=== PATIENT | female | born 1990 | race Caucasian/White ===

== ENCOUNTER 2016-10-10 16:08 | Emergency (ER) | payer OTHER ==
[~2016-10-10] VITALS: Ht 167.6 cm; Wt 124.0 kg
[~2016-10-10 16:08] MED LIST: CLIN150 PO; PERC5TAB12 PO
[2016-10-10 16:10] VITALS: BP 130/77; PULSE 90; RESP 20; TEMP 97.6; O2SAT 96
--- NOTE | 2016-10-10 18:49 | PD ---
HPI Chief Complaint: Back/ Neck Pain or Injury Time Seen by Provider: 18:49 Travel History International Travel<30 days: No Contact w/Intl Traveler<30days: No Traveled to known affect area: No History of Present Illness HPI 26 year-old female history of renal calculi presents to the emergency for evaluation of low back pain. Patient states she it is on the low left side. It does not radiate anywhere. She has had no urinary symptoms. States she believes it is from lifting a box at work. Denies any saddle paresthesia, loss of bowel or bladder, lower extremity weakness. Patient has no other symptoms to report at this time. PFSH Past Medical History Arthritis: No Asthma: No Autoimmune Disease: No Heart Rhythm Problems: No Cancer: No Cardiovascular Problems: No High Cholesterol: No Chemotherapy: No Chest Pain: No Congestive Heart Failure: No COPD: No Cerebrovascular Accident: No Diabetes: Yes Endocrine: No GERD: No Genitourinary: Yes Hiatal Hernia: No Immune Disorder: No Kidney Stones: Yes Musculoskeletal: No Neurologic: No Psychiatric: No Reproductive: No Respiratory: No Migraines: No Radiation Therapy: No Renal Failure: No Seizures: No Sickle Cell Disease: No Sleep Apnea: No Thyroid Disease: No Ulcer: No Past Surgical History Abdominal Surgery: No AICD: No Arteriovenous Shunt: No Cardiac Surgery: No Ear Surgery: No Endocrine Surgery: No Eye Surgery: No Genitourinary Surgery: Yes (CYSTOSCOPY (1999)) Gynecologic Surgery: No Insulin Pump: No Joint Replacement: No Oral Surgery: No Pacemaker: No Thoracic Surgery: No Other Surgery: Yes Social History Alcohol Use: No Tobacco Use: Yes Substance Use: No Allergies-Medications (Allergen,Severity, Reaction): Coded Allergies: Aspirin (Verified Allergy, Severe, Swelling, 10/10/16) Reported Meds & Prescriptions Reported Meds & Active Scripts Active Percocet 5-325 mg (Oxycodone/Acetaminophen) 1 Tab 1 Tab PO Q4H PRN Cleocin (Clindamycin HCl) 150 Mg Cap 2 Tab PO QID Review of Systems Except as stated in HPI: all other systems reviewed are Neg Physical Exam Narrative GENERAL: Obese female patient, ambulatory with a nonantalgic gait, no acute distress SKIN: Warm and dry. HEAD: Normocephalic. Atraumatic EYES: No scleral icterus. No injection or drainage. NECK: Supple, trachea midline. No JVD or lymphadenopathy. CARDIOVASCULAR: Regular rate and rhythm without murmurs, gallops, or rubs. RESPIRATORY: Breath sounds equal bilaterally. No accessory muscle use. GASTROINTESTINAL: Abdomen soft, non-tender, nondistended. MUSCULOSKELETAL: No cyanosis, or edema. Tenderness to palpation in the left sided lumbar paraspinous musculature. The spinal tenderness to palpation. 5+ strength equal bilateral lower extremities. Sensation intact distal extremities. BACK: No midline tenderness without obvious deformity. No CVA tenderness. Data Data Last Documented VS Vital Signs Date Time Temp Pulse Resp B/P Pulse Ox O2 Delivery O2 Flow Rate FiO2 10/10/16 16:10 97.6 90 20 130/77 96 Room Air Orders Urinalysis - C+S If Indicated (10/10/16 18:46) Ketorolac Inj (Toradol Inj) (10/10/16 19:00) Orphenadrine Inj (Norflex Inj) (10/10/16 19:00) MDM Medical Decision Making Medical Screen Exam Complete: Yes Emergency Medical Condition: Yes Medical Record Reviewed: Yes Differential Diagnosis Cystitis versus pyelonephritis versus muscle strain versus sciatica Narrative Course 26 year-old female presents to the emergency department for evaluation of low back pain. Patient is provided pain control. Urinalysis is sent. I have given report to Bran Rosa PA-C. Disposition will pend his judgment. Condition: Stable Mariaa Villaseñor Oct 10, 2016 18:49
[2016-10-10] MEDS ORDERED: ORPHENADRINE INJ 60 MG/2 ML AMP IM ONE (19:00)
[2016-10-10] MEDS ORDERED: KETOROLAC TROMETHAMINE 60 MG/2 ML (IM) VIAL IM ONE (19:00)
[2016-10-10 19:40] LABS: BACTERIA, URINE OCC /hpf; BLOOD, URINE SMALL (NEG); COMMENT (UR) CULTURE INDICATED; CULTURE IF INDICATED CULTURE INDICATED; GLUCOSE,URINE NEG (NEG); KETONE, URINE NEG (NEG); NITRITE,URINE POS (NEG); PH, URINE 5.5 (5.0-8.5); SQUAMOUS EPITHELIAL CELL URINE 3 /hpf (0-5); URINE COLOR YELLOW (YELLW/STRAW)
[2016-10-10] MEDS ORDERED: MACR100C2 PO (19:50)
[2016-10-10] MEDS ORDERED: ROBA750T PO (19:50)
--- NOTE | 2016-10-10 19:54 | PD ---
Data Data Last Documented VS Vital Signs Date Time Temp Pulse Resp B/P Pulse Ox O2 Delivery O2 Flow Rate FiO2 10/10/16 16:10 97.6 90 20 130/77 96 Room Air Orders Urinalysis - C+S If Indicated (10/10/16 18:46) Ketorolac Inj (Toradol Inj) (10/10/16 19:00) Orphenadrine Inj (Norflex Inj) (10/10/16 19:00) Urine Culture (10/10/16 19:05) Nitrofurantoin Monohyd Macrocr (Macrobid (10/10/16 20:00) Labs Laboratory Tests Test 10/10/16 19:05 Urine Color YELLOW Urine Turbidity CLEAR Urine pH 5.5 Urine Specific [place] 1.020 Urine Protein 30 mg/dL Urine Glucose (UA) NEG mg/dL Urine Ketones NEG mg/dL Urine Occult Blood SMALL Urine Nitrite POS Urine Bilirubin NEG Urine Urobilinogen LESS THAN 2.0 MG/DL Urine Leukocyte Esterase SMALL Urine RBC 4 /hpf Urine WBC 7 /hpf Urine Squamous Epithelial 3 /hpf Cells Urine Bacteria OCC /hpf Microscopic Urinalysis Comment CULTURE INDICATED MDM Medical Record Reviewed: Yes Supervised Visit with NEW: No Interpretation(s) Laboratory Tests Test 10/10/16 19:05 Urine Color YELLOW Urine Turbidity CLEAR Urine pH 5.5 Urine Specific [place] 1.020 Urine Protein 30 mg/dL Urine Glucose (UA) NEG mg/dL Urine Ketones NEG mg/dL Urine Occult Blood SMALL Urine Nitrite POS Urine Bilirubin NEG Urine Urobilinogen LESS THAN 2.0 MG/DL Urine Leukocyte Esterase SMALL Urine RBC 4 /hpf Urine WBC 7 /hpf Urine Squamous Epithelial 3 /hpf Cells Urine Bacteria OCC /hpf Microscopic Urinalysis Comment CULTURE INDICATED Differential Diagnosis MDM: High Differential diagnoses: Fracture, sprain, strain, HNP, nerve or vascular injury , epidural abscess, pilonidal cyst Narrative Course Patient was given Toradol and Norflex earlier. Patient's urine is positive for UTI. She has positive bacteria and nitrates. She is given Macrobid by mouth here in the ER. This is back pain, UTI Diagnosis Primary Impression: Back pain Qualified Code: M54.5 - Acute low back pain, unspecified back pain laterality , with sciatica presence unspecified Additional Impression: UTI (urinary tract infection) Qualified Code: N30.00 - Acute cystitis without hematuria Patient Instructions: General Instructions Departure Forms: Tests/Procedures, Work Release Special Instructions: No work 3 days. Additional Instruction: Rest. Ice for the next 3 days followed by heat . Robaxin and Lortab. Macrobid. Follow-up with a primary care doctor in one week. Return to the ER for emergencies. Med/Other Pt SpecificInfo: Prescription(s) given Scripts Hydrocodone-Acetaminophen (Lortab)5-325 Mg Tab1 Tab PO Q8HR PRN (PAIN) #12 TAB Prov:Heladio Boateng MD 10/10/16 Methocarbamol (Robaxin)750 Mg Tab1,500 Mg PO TID 7 Days Prov:Heladio Boateng MD 10/10/16 Nitrofurantoin Monohydrate Macrocrystals (Macrobid)100 Mg [id number] Mg PO BID #20 CAP Prov:Heladio Boateng MD 10/10/16 Disposition: 01 DISCHARGE HOME Condition: Stable Edwin Beckford Oct 10, 2016 19:54
[2016-10-10] MEDS ORDERED: HYDR-3533 PO (19:58)
[2016-10-10] MEDS ORDERED: NITROFURANTOIN MONOHYD MACROCR 100 MG CAP PO ONE (20:00)
[2016-10-10] MEDS ORDERED: MEDR4PAK PO (23:25)
[2016-10-10] MEDS ORDERED: EPIN1INJ19 INJ (23:25)
[2016-10-10] MEDS ORDERED: BENA25TA3 PO (23:25)
[2016-10-10] MEDS ORDERED: FAMO20TA2 PO (23:25)
== END 2016-10-10 20:14 | disposition home or self-care (01) ==
LOC: NEPB 16:08
DX: M54.5 Low back pain (principal); N30.00 Acute cystitis without hematuria; B96.20 Unspecified Escherichia coli [E. coli] as the cause of diseases classified elsewhere
CPT/HCPCS: 81001; 87077; 87086; 87186; 96372; 99283; J1885; J2360

== ENCOUNTER 2016-10-10 21:31 | Emergency (ER) | payer OTHER ==
[~2016-10-10] VITALS: Ht 167.6 cm; Wt 122.0 kg
[~2016-10-10 21:31] MED LIST changes: +HYDR-3533 PO; +MACR100C2 PO; +ROBA750T PO
[2016-10-10 21:33] VITALS: BP 139/88; PULSE 86; RESP 18; TEMP 97.6; O2SAT 97
--- NOTE | 2016-10-10 22:19 | PD ---
HPI Chief Complaint: Allergic/Adverse Reaction Time Seen by Provider: 22:08 Travel History International Travel<30 days: No Contact w/Intl Traveler<30days: No Traveled to known affect area: No History of Present Illness HPI The patient is a 26 year old female who presents to the [facility] emergency department with a history of Hg red watery eyes that first began in the right eye and then also began to involve the left eye just prior to being discharged from the emergency department earlier today around 8 PM after an evaluation for back pain. The patient while in the emergency department being evaluated for possible kidney stone, versus muscle strain related to heavy lifting at work was given an IM injection of Toradol and Norflex. The patient was also diagnosed with urinary tract infection based on her urinalysis and given Macrobid. She was discharged home with a prescription for Lortab, Robaxin , and Macrobid, however she has not filled the prescriptions yet. She reports that when she arrived home she noticed that she was also experiencing some tightness in the upper aspect of her chest, a dry cough, and wheezing. The patient according to the record has a history of allergy to aspirin. She denies having any tongue swelling or throat swelling. She reports that she feels like her face is swelling, however this is difficult to discern on exam. She denies having any other rashes or generalized itching. She denies having any abdominal pain, cramping, or diarrhea. The patient denies any recent fevers , cough, congestion, neck pain, vomiting, diarrhea, urinary symptoms, or neurologic symptoms. PFSH Past Medical History Narrative Medical The patient's past medical history is significant for an aspirin allergy, history of diabetes mellitus, history of obesity, history of kidney stones. Arthritis: No Asthma: No Autoimmune Disease: No Heart Rhythm Problems: No Cancer: No Cardiovascular Problems: No High Cholesterol: Yes Chemotherapy: No Chest Pain: No Congestive Heart Failure: No COPD: No Cerebrovascular Accident: No Diabetes: Yes Patient Takes Glucophage: Yes Diminished Hearing: No Endocrine: No GERD: No Genitourinary: Yes Hiatal Hernia: No Immune Disorder: No Kidney Stones: Yes Musculoskeletal: No Neurologic: No Psychiatric: No Reproductive: No Respiratory: No Migraines: No Radiation Therapy: No Renal Failure: No Seizures: No Sickle Cell Disease: No Sleep Apnea: No Thyroid Disease: No Ulcer: No ?: Not Past Surgical History Narrative Surgical The patient's past surgical history is significant for a cystoscopy Abdominal Surgery: No AICD: No Arteriovenous Shunt: No Cardiac Surgery: No Ear Surgery: No Endocrine Surgery: No Eye Surgery: No Genitourinary Surgery: Yes (CYSTOSCOPY (1999)) Gynecologic Surgery: No Insulin Pump: No Joint Replacement: No Oral Surgery: No Pacemaker: No Thoracic Surgery: No Other Surgery: Yes Social History Alcohol Use: No Tobacco Use: No Substance Use: No Allergies-Medications (Allergen,Severity, Reaction): Coded Allergies: Aspirin (Verified Allergy, Severe, Swelling, 10/10/16) Reported Meds & Prescriptions Reported Meds & Active Scripts Active Famotidine 20 Mg Tab 20 Mg PO BID Benadryl Allergy (Diphenhydramine HCl) 25 Mg Tab 25 Mg PO Q6H 3 Days Medrol Dosepak (Methylprednisolone) 4 Mg Dspk 4 Mg PO DIRECTED Per Pharmacist direction Epinephrine Inj Pack (Epinephrine) 0.15 Mg/0.15 Ml Pfpen 0.15 Mg INJ ONCE PRN Lortab (Hydrocodone-Acetaminophen) 5-325 Mg Tab 1 Tab PO Q8HR PRN Robaxin (Methocarbamol) 750 Mg Tab 1,500 Mg PO TID 7 Days Macrobid (Nitrofurantoin Monoh/Nitrofur Macro) 100 Mg Cap 100 Mg PO BID Review of Systems Except as stated in HPI: all other systems reviewed are Neg General / Constitutional: No: Fever Eyes: Positive: Redness, Tearing, No: Visual changes HENT: No: Headaches Cardiovascular: Positive: Chest Pain or Discomfort (chest tightness) Respiratory: Positive: Cough, Shortness of Breath, Wheezing Gastrointestinal: No: Abdominal Pain Genitourinary: No: Dysuria Musculoskeletal: No: Pain Skin: No Rash Neurologic: No: Weakness Psychiatric: No: Depression Endocrine: No: Polydipsia Hematologic/Lymphatic: No: Easy Bruising Physical Exam Narrative General: The patient is a well-developed well-nourished female in no acute distress. Head and Neck exam: Head is normocephalic atraumatic. Eyes: EOMI, pupils are equal round and reactive to light. Nose: Midline septum with pink mucous membranes Mouth: Dentition unremarkable. Moist mucus membranes. Posterior oropharynx is not erythematous. No tonsillar hypertrophy. Uvula midline. Airway patent. No evidence of tongue swelling on examination. No facial swelling is able to be discerned. Neck: No palpable lymphadenopathy. No nuchal rigidity. No thyromegaly. Cardiovascular: Regular rate and rhythm without murmurs, gallops, or rubs. Lungs: Soft expiratory wheezes are audible in bilateral lung sterling anteriorly, that clear with coughing. The patient is experiencing a dry occasional cough on examination. Abdomen: Soft, without tenderness to palpation in all 4 quadrants of the abdomen. No guarding, rebound, or rigidity. Normal bowel sounds are audible. Extremities: No clubbing, cyanosis, or edema. Back: No spinous process tenderness to palpation. No costovertebral angle tenderness to palpation. Neurologic Exam: Grossly nonfocal. Skin Exam: No rash noted. Intact skin that is warm and dry. Data Data Last Documented VS Vital Signs Date Time Temp Pulse Resp B/P Pulse Ox O2 Delivery O2 Flow Rate FiO2 10/10/16 21:54 16 98 Room Air 10/10/16 21:33 97.6 86 139/88 Orders Methylprednisolone So Succ Inj (Solumedr (10/10/16 22:30) Diphenhydramine Inj (Benadryl Inj) (10/10/16 22:30) Albuterol-Ipratropium Neb (Duoneb Neb) (10/10/16 22:30) Famotidine Inj (Pepcid Inj) (10/10/16 22:30) Sodium Chlor 0.9% 1000 Ml Inj (Ns 1000 M (10/10/16 22:30) Complete Blood Count With Diff (10/10/16 22:26) Basic Metabolic Panel (Bmp) (10/10/16 22:26) Chest, Single Ap (10/10/16 23:00) Labs Laboratory Tests Test 10/10/16 22:35 White Blood Count 10.4 TH/MM3 Red Blood Count 4.94 MIL/MM3 Hemoglobin 14.8 GM/DL Hematocrit 42.1 % Mean Corpuscular Volume 85.3 FL Mean Corpuscular Hemoglobin 30.1 PG Mean Corpuscular Hemoglobin 35.3 % Concent Red Cell Distribution Width 12.8 % Platelet Count 323 TH/MM3 Mean Platelet Volume 8.1 FL Neutrophils (%) (Auto) 53.2 % Lymphocytes (%) (Auto) 38.1 % Monocytes (%) (Auto) 5.3 % Eosinophils (%) (Auto) 2.4 % Basophils (%) (Auto) 1.0 % Neutrophils # (Auto) 5.6 TH/MM3 Lymphocytes # (Auto) 4.0 TH/MM3 Monocytes # (Auto) 0.6 TH/MM3 Eosinophils # (Auto) 0.3 TH/MM3 Basophils # (Auto) 0.1 TH/MM3 CBC Comment DIFF FINAL Differential Comment Sodium Level 134 MEQ/L Potassium Level 3.5 MEQ/L Chloride Level 98 MEQ/L Carbon Dioxide Level 25.7 MEQ/L Anion Gap 10 MEQ/L Blood Urea Nitrogen 14 MG/DL Creatinine 0.95 MG/DL Estimat Glomerular Filtration 70 ML/MIN Rate Random Glucose 197 MG/DL Calcium Level 8.9 MG/DL MDM Medical Decision Making Medical Screen Exam Complete: Yes Emergency Medical Condition: Yes Medical Record Reviewed: Yes Differential Diagnosis Allergic reaction, possibly related to Toradol given her aspirin allergy, versus Norflex. Narrative Course During the course of the patients emergency department visit, the patients history, examination, and differential diagnosis were reviewed with the patient. The patient had IV access obtained and blood work sent for analysis. The patient was placed on a media monitor with oximetry and blood pressure monitoring. The patient was provided famotidine IV, Benadryl 25 mg IV, Solu-Medrol 125 mg IV , DuoNeb 1. The patients laboratory studies were reviewed and remarkable for a CBC that is within normal limits, BMP is remarkable for sodium of 134, glucose 197. Chest x -ray showed no acute cardiopulmonary process. The patient on reexamination at 11:45 PM is resting comfortably, wheezing has resolved, itchy watery eyes have resolved. The patient will be discharged home. The patient will be given a prescription for an EpiPen, Benadryl, Medrol Dosepak taper, and famotidine. The patient had not filled her prescriptions for Lortab, Macrobid, or Robaxin yet. As she did have a reaction after being given IM injections of Toradol and Norflex, I suspect that the reaction is related to the Toradol, however as it could be related to the muscle relaxer, I did discontinue this prescription. The patient had it at the bedside and gave it back to me. The prescription will be placed in the shredder. Diagnosis Primary Impression: Allergic reaction caused by a drug Qualified Code: T78.40XA - Allergic reaction caused by a drug, initial encounter Referrals: Primary Care Physician Patient Instructions: General Allergic Reaction (ED), General Instructions Med/Other Pt SpecificInfo: Prescription(s) given, Med Stopped (the Robaxin prescription was discontinued.) Scripts Famotidine 20 Mg Tab20 Mg PO BID #14 TAB Ref 0 Prov:Cheyenne Guevara MD 10/10/16 Diphenhydramine (Benadryl Allergy)25 Mg Tab25 Mg PO Q6H 3 Days Ref 0 Prov:Cheyenne Guevara MD 10/10/16 Methylprednisolone Dosepak (Medrol Dosepak)4 Mg Dspk4 Mg PO DIRECTED #1 DSPK Ref 0 Per Pharmacist direction Prov:Cheyenne Guevara MD 10/10/16 Epinephrine Inj Pack 0.15 Mg/0.15 Ml Pfpen0.15 Mg INJ ONCE PRN (ALLERGIC REACTION) #1 PACK Prov:Cheyenne Guevara MD 10/10/16 Disposition: 01 DISCHARGE HOME Condition: Stable Cheyenne Guevara MD Oct 10, 2016 22:19
[2016-10-10] MEDS ORDERED: SODIUM CHLOR 0.9% 1000 ML INJ 1,000 ML IV ONE (22:30)
[2016-10-10] MEDS ORDERED: FAMOTIDINE IV SCH (22:30)
[2016-10-10] MEDS ORDERED: diphenhydrAMINE HCL 50 MG/ML VIAL IV PUSH ONE (22:30)
[2016-10-10] MEDS ORDERED: methylPREDNISolone SOD SUCC 125 MG/2 ML VIAL IV PUSH ONE (22:30)
[2016-10-10] MEDS ORDERED: RESP: ALBUTEROL 2.5 MG/IPRATROPIUM 0.5 MG NEB (SCH) NEB ONE (22:30)
[2016-10-10] MEDS ORDERED: SODIUM CHLOR 0.9% IV SCH (22:30)
[2016-10-10 22:49] LABS: AUTOMATED NEUTROPHIL # 5.6 TH/MM3 (1.8-7.7); BASOPHIL # 0.1 TH/MM3 (0-0.2); EOSINOPHIL # 0.3 TH/MM3 (0-0.4); EOSINOPHIL % 2.4 % (0.0-4.0); HEMATOCRIT 42.1 % (35.0-46.0); HEMO FLAGS DIFF FINAL; LYMPH % 38.1 % (9.0-44.0); MEAN CELL VOLUME 85.3 FL (80.0-100.0); MEAN CORPUSCULAR HEMOGLOBIN 30.1 PG (27.0-34.0); MEAN CORPUSCULAR HGB CONC 35.3 % (32.0-36.0); MONO % 5.3 % (0.0-8.0); NEUT % 53.2 % (16.0-70.0); PLATELET COUNT 323 TH/MM3 (150-450); RED BLOOD COUNT 4.94 MIL/MM3 (4.00-5.30); RED CELL DISTRIBUTION WIDTH 12.8 % (11.6-17.2); WHITE BLOOD COUNT 10.4 TH/MM3 (4.0-11.0)
[2016-10-10 23:02] LABS: BICARBONATE 25.7 MEQ/L (21.0-32.0); POTASSIUM 3.5 MEQ/L (3.5-5.1)
[2016-10-10] MEDS ORDERED: MEDR4PAK PO (23:25)
[2016-10-10] MEDS ORDERED: EPIN1INJ19 INJ (23:25)
[2016-10-10] MEDS ORDERED: FAMO20TA2 PO (23:25)
[2016-10-10] MEDS ORDERED: BENA25TA3 PO (23:25)
--- NOTE | 2016-10-10 23:32 | RADRPT ---
EXAM DATE/TIME: 10/10/2016 23:19 [place] COMPARISON: No previous studies available for comparison. INDICATIONS : Short of breath. MEDICAL HISTORY : None. SURGICAL HISTORY : None. ENCOUNTER: Initial ACUITY: 1 day PAIN SCORE: 0/10 LOCATION: Bilateral chest FINDINGS: A single view of the chest demonstrates the lungs to be symmetrically aerated without evidence of mas s, infiltrate or effusion. The cardiomediastinal contours are unremarkable. Osseous structures are intact. CONCLUSION: No acute cardiopulmonary process. Tyree White MD on October 10, 2016 at 23:30 Board Certified Radiologist. This report was verified electronically.
== END 2016-10-11 00:27 | disposition home or self-care (01) ==
LOC: NEPE 21:31
DX: R06.2 Wheezing (principal); T50.905A Adverse effect of unspecified drugs, medicaments and biological substances, initial encounter
CPT/HCPCS: 71010; 80048; 85025; 94664; 96374; 96375; 99283; J1200; J2930; J7030; J7050

== ENCOUNTER 2017-03-09 11:29 | Emergency (ER) | payer OTHER ==
[~2017-03-09] VITALS: Ht 167.6 cm; Wt 130.0 kg
[~2017-03-09 11:29] MED LIST changes: +BENA25TA3 PO; -CLIN150 PO; +EPIN1INJ19 INJ; +FAMO20TA2 PO; +MEDR4PAK PO; -PERC5TAB12 PO; -ROBA750T PO
[2017-03-09 11:30] VITALS: BP 147/84; PULSE 78; RESP 20; TEMP 98.2; O2SAT 97
--- NOTE | 2017-03-09 11:41 | PD ---
Physical Exam Time Seen by Provider: 11:40 Narrative 26 y/o female here for evaluation of left sided dental pain that radiates into the ear. Unable to see a dentist until 03/28. Vital signs reviewed. seen at triage desk. Awaiting bed placement. Data Data Last Documented VS Vital Signs Date Time Temp Pulse Resp B/P Pulse Ox O2 Delivery O2 Flow Rate FiO2 03/09/17 11:30 98.2 78 20 147/84 97 Room Air [facility] Medical Record Reviewed: Yes Supervised Visit with NEW: No Jasiel Bustamante Mar 09, 2017 11:41
[2017-03-09] MEDS ORDERED: IBUP800T23 PO (11:43)
[2017-03-09] MEDS ORDERED: AMOX500C PO (11:44)
--- NOTE | 2017-03-09 11:44 | PD ---
HPI Chief Complaint: Oral / Dental Pain or Problem Time Seen by Provider: 11:42 Travel History International Travel<30 days: No Contact w/Intl Traveler<30days: No Traveled to known affect area: No History of Present Illness HPI 26-year-old female presents to the emergency Department with complaint of left upper tooth pain that started approximately 3 AM this morning. Pain radiates to her left ear and head. Denies fever. Reports nausea without vomiting. Has taken [place] for symptom management. Can follow up with a dentist March 28. Allergies to aspirin. Has no other medical complaints. No other modifying factors or associated signs and symptoms. PFSH Past Medical History Arthritis: No Asthma: No Autoimmune Disease: No Heart Rhythm Problems: No Cancer: No Cardiovascular Problems: No High Cholesterol: Yes Chemotherapy: No Chest Pain: No Congestive Heart Failure: No COPD: No Cerebrovascular Accident: No Diabetes: Yes Diminished Hearing: No Endocrine: No GERD: No Genitourinary: Yes Hiatal Hernia: No Immune Disorder: No Kidney Stones: Yes Musculoskeletal: No Neurologic: No Psychiatric: No Reproductive: No Respiratory: No Migraines: No Radiation Therapy: No Renal Failure: No Seizures: No Sickle Cell Disease: No Sleep Apnea: No Thyroid Disease: No Ulcer: No ?: Unknown LMP: 2 MONTHS AGO Past Surgical History Abdominal Surgery: No AICD: No Arteriovenous Shunt: No Cardiac Surgery: No Ear Surgery: No Endocrine Surgery: No Eye Surgery: No Genitourinary Surgery: Yes (CYSTOSCOPY (1999)) Gynecologic Surgery: No Insulin Pump: No Joint Replacement: No Oral Surgery: No Pacemaker: No Thoracic Surgery: No Other Surgery: Yes Social History Alcohol Use: No Tobacco Use: No Substance Use: No Allergies-Medications (Allergen,Severity, Reaction): Coded Allergies: Aspirin (Verified Allergy, Severe, Swelling, 03/09/17) Reported Meds & Prescriptions Reported Meds & Active Scripts Active Reported Metformin (Metformin HCl) 500 Mg Tab 500 Mg PO BIDPC With meals [place] (Hydrocodone-Acetaminophen) 5-325 mg Tab 1 Tab PO Q6H PRN Review of Systems Except as stated in HPI: all other systems reviewed are Neg Physical Exam Narrative GENERAL: Well-nourished, well-developed female patient, in no acute distress; afebrile, nontoxic-appearing SKIN: Warm and dry. HEAD: Atraumatic. Normocephalic. No facial edema, erythema, tenderness on palpation. No lymphadenopathy. EYES: Pupils equal and round. No scleral icterus. No injection or drainage. ENT: Mucosa pink and moist. Airway patent. MOUTH: Mucous membranes moist, no lesions, tongue and gums appear normal. Tooth #14 with tenderness on palpation; large dental cavity and decay. Surrounding gingiva is without erythema, edema, drainage. No obvious abscess noted. NECK: Trachea midline. No lymphadenopathy. CARDIOVASCULAR: Regular rate. RESPIRATORY: No accessory muscle use. GASTROINTESTINAL: Obese. MUSCULOSKELETAL: No obvious deformities. No clubbing. No cyanosis. No edema. NEUROLOGICAL: Awake and alert. Oriented 3. No obvious cranial nerve deficits. Motor grossly within normal limits. Normal speech. PSYCHIATRIC: Appropriate mood and affect; insight and judgment normal. Data Data Last Documented VS Vital Signs Date Time Temp Pulse Resp B/P Pulse Ox O2 Delivery O2 Flow Rate FiO2 03/09/17 11:30 98.2 78 20 147/84 97 Room Air MDM Medical Decision Making Medical Screen Exam Complete: Yes Emergency Medical Condition: Yes Medical Record Reviewed: Yes Differential Diagnosis Dentalgia, dental caries, dental abscess Narrative Course 26-year-old female with left upper tooth #14 dentalgia. Large dental cavity noted. Tooth is tender on palpation. No obvious dental abscess noted. No facial edema, erythema. Patient is afebrile and nontoxic-appearing. Denies fever, vomiting. His follow-up appointment March 28 with dentist. Patient allergic to aspirin and says she cannot take Toradol or ibuprofen. Patient has prescription for [place]; instructed patient to continue medications as prescribed and as needed for pain. Amoxicillin prescribed for home. Instructed patient to follow up with dentist. Instructed patient to follow up with primary care provider. Patient verbalizes understanding and agreement with treatment plan. Patient is medically cleared and stable for discharge. Discussed reasons to return to the emergency department. Patient agrees with treatment plan. The patients vital signs are stable and the patient is stable for outpatient follow-up and treatment. Patient discharged home, stable and in no acute distress. Diagnosis Primary Impression: Dentalgia Referrals: Dentist Primary Care Physician Patient Instructions: Dental Abscess (ED), Dental Caries (ED), General Instructions, Toothache (ED) Departure Forms: Tests/Procedures, Work Release Enter return to work date: Mar 10, 2017 Additional Instructions: Complete full course of antibiotics Tylenol as directed and as needed to reduce pain and inflammation Warm or cool compresses to the affected area Follow-up with dentist Follow-up with primary care provider Return to emergency department immediately with worsening of symptoms Med/Other Pt SpecificInfo: Prescription(s) given Disposition: 01 DISCHARGE HOME Condition: Stable Kylie Villeda Mar 09, 2017 11:44
[2017-03-09] MEDS ORDERED: NORC5TAB PO (11:54)
[2017-03-09] MEDS ORDERED: METF500T PO (11:54)
== END 2017-03-09 12:03 | disposition home or self-care (01) ==
LOC: NEPK 11:29
DX: K08.89 Other specified disorders of teeth and supporting structures (principal); K02.9 Dental caries, unspecified; E11.9 Type 2 diabetes mellitus without complications; Z79.84 Long term (current) use of oral hypoglycemic drugs; E78.00 Pure hypercholesterolemia, unspecified
CPT/HCPCS: 99282

== ENCOUNTER 2017-12-12 02:08 | Emergency (ER) | payer SELFPAY ==
[~2017-12-12] VITALS: Ht 167.6 cm; Wt 125.0 kg
[~2017-12-12 02:08] MED LIST changes: -BENA25TA3 PO; -EPIN1INJ19 INJ; -FAMO20TA2 PO; -HYDR-3533 PO; -MACR100C2 PO; -MEDR4PAK PO; +METF500T PO; +NORC5TAB PO
[2017-12-12 02:14] VITALS: BP 130/82; PULSE 87; RESP 16; TEMP 98.1; O2SAT 97
[2017-12-12 02:35] VITALS: BP 141/95; PULSE 93; RESP 18; O2SAT 97
[2017-12-12] MEDS ORDERED: ZOLO25TA PO (02:37)
[2017-12-12] MEDS ORDERED: LIPI10TA PO (02:37)
[2017-12-12] MEDS ORDERED: GEMF600T PO (02:37)
[2017-12-12] MEDS ORDERED: ONDANSETRON HCL 4 MG/2 ML VIAL IV ONE (02:45)
[2017-12-12] MEDS ORDERED: SODIUM CHLOR 0.9% 1000 ML INJ 1,000 ML IV ONE (02:45)
[2017-12-12 02:56] LABS: AUTOMATED NEUTROPHIL # 4.4 TH/MM3 (1.8-7.7); BASOPHIL # 0.1 TH/MM3 (0-0.2); BASOPHIL % 1.2 % (0.0-2.0); EOSINOPHIL # 0.2 TH/MM3 (0-0.4); EOSINOPHIL % 2.3 % (0.0-4.0); HEMATOCRIT 42.8 % (35.0-46.0); HEMOGLOBIN 14.8 GM/DL (11.6-15.3); LYMPH % 43.2 % (9.0-44.0); LYMPHOCYTE # 4.1 TH/MM3 (1.0-4.8); MEAN CELL VOLUME 84.2 FL (80.0-100.0); MEAN CORPUSCULAR HEMOGLOBIN 29.2 PG (27.0-34.0); MEAN CORPUSCULAR HGB CONC 34.6 % (32.0-36.0); MEAN PLATELET VOLUME 7.7 FL (7.0-11.0); MONO % 6.8 % (0.0-8.0); MONOCYTE # 0.6 TH/MM3 (0-0.9); NEUT % 46.5 % (16.0-70.0); PLATELET COUNT 297 TH/MM3 (150-450); RED BLOOD COUNT 5.08 MIL/MM3 (4.00-5.30); RED CELL DISTRIBUTION WIDTH 13.3 % (11.6-17.2); WHITE BLOOD COUNT 9.4 TH/MM3 (4.0-11.0)
[2017-12-12 03:01] LABS: BACTERIA, URINE FEW /hpf; BILIRUBIN, URINE NEG (NEG); BLOOD, URINE TRACE (NEG); GLUCOSE,URINE 1000 mg/dL (NEG); KETONE, URINE TRACE mg/dL (NEG); MUCUS URINE FEW /lpf (OCC); NITRITE,URINE POS (NEG); PH, URINE 5.5 (5.0-8.5); SQUAMOUS EPITHELIAL CELL URINE 5 /hpf (0-5); URINE COLOR LIGHT-YELLOW (YELLW/STRAW); URINE LEUKOCYTE ESTERASE SMALL (NEG)
--- NOTE | 2017-12-12 03:07 | PD ---
HPI Chief Complaint: Diabetic Time Seen by Provider: 02:38 Travel History International Travel<30 days: No Contact w/Intl Traveler<30days: No Traveled to known affect area: No History of Present Illness HPI The patient is a 27 year old female who presents to the [facility] emergency department with a history of reportedly not feeling well since yesterday. She reports having a bitemporal headache, nausea, increased thirst, dizzy sensation, and slightly blurred vision. The patient reports that she took her blood sugar prior to arrival and it was 300 and then she checked it again and it was 400. She took an extra dose of her metformin 500 mg and then came to the emergency department for evaluation and treatment. The patient reports that she ran out of her metformin for a few weeks recently due to problems with her insurance. She recently started back on it. She reports that she is taking 500 mg twice a day. Otherwise on review of systems, the patient denies having any recent fevers, cough or congestion, neck pain, chest pain, shortness of breath, abdominal pain, vomiting, diarrhea, urinary symptoms , or other neurologic symptoms. LMP: 11/13/2017 [facility] Past Medical History Arthritis: No Asthma: No Autoimmune Disease: No Heart Rhythm Problems: No Cancer: No Cardiovascular Problems: No High Cholesterol: Yes Chemotherapy: No Chest Pain: No Congestive Heart Failure: No COPD: No Cerebrovascular Accident: No Diabetes: Yes Patient Takes Glucophage: Yes Diminished Hearing: No Endocrine: No Gastrointestinal Disorders: No GERD: No Genitourinary: Yes Headaches: No Hiatal Hernia: No Heparin Induced Thrombocytopen: No Hypertension: No Immune Disorder: No Implanted Vascular Access Dvce: No Kidney Stones: Yes Musculoskeletal: No Neurologic: No Psychiatric: No Reproductive: No Respiratory: No Migraines: No Radiation Therapy: No Renal Failure: No Seizures: No Sickle Cell Disease: No Sleep Apnea: No Thyroid Disease: No Ulcer: No ?: Not LMP: 11/13/17 Past Surgical History Abdominal Surgery: No AICD: No Arteriovenous Shunt: No Cardiac Surgery: No Ear Surgery: No Endocrine Surgery: No Eye Surgery: No Genitourinary Surgery: Yes (CYSTOSCOPY (1999)) Gynecologic Surgery: No Insulin Pump: No Joint Replacement: No Neurologic Surgery: No Oral Surgery: No Pacemaker: No Thoracic Surgery: No Other Surgery: Yes Social History Alcohol Use: No Tobacco Use: No Substance Use: No Allergies-Medications (Allergen,Severity, Reaction): Coded Allergies: aspirin (Unverified Allergy, Severe, Swelling, 03/22/17) Reported Meds & Prescriptions Reported Meds & Active Scripts Active Metformin (Metformin HCl) 1,000 Mg Tab 1,000 Mg PO BIDPC Macrobid (Nitrofurantoin Monoh/Nitrofur Macro) 100 Mg Cap 100 Mg PO BID 10 Days Reported Zoloft (Sertraline HCl) 25 Mg Tab 25 Mg PO DAILY Lipitor (Atorvastatin Calcium) 10 Mg Tab 10 Mg PO HS Gemfibrozil 600 Mg Tab 600 Mg PO BIDAC Take 30 minutes prior to breakfast and dinner. Review of Systems Except as stated in HPI: all other systems reviewed are Neg General / Constitutional: No: Fever Eyes: Positive: Blurred Vision, No: Visual changes HENT: Positive: Headaches, No: Rhinorrhea, Congestion, Neck Stiffness, Neck Pain Cardiovascular: No: Chest Pain or Discomfort Respiratory: No: Shortness of Breath Gastrointestinal: Positive: Nausea, No: Vomiting, Diarrhea, Abdominal Pain Genitourinary: No: Dysuria Musculoskeletal: No: Pain Skin: No Rash Neurologic: Positive: Headache, No: Weakness, Focal Abnormalities, Change in Mentation, Slurred Speech, Sensory Disturbance Psychiatric: No: Depression Endocrine: No: Polydipsia Hematologic/Lymphatic: No: Easy Bruising Physical Exam Narrative General: The patient is a well-developed well-nourished female in no acute distress. Head and Neck exam: Head is normocephalic atraumatic. Eyes: EOMI, pupils are equal round and reactive to light. Nose: Midline septum with pink mucous membranes Mouth: Dentition unremarkable. Moist mucus membranes. Posterior oropharynx is not erythematous. No tonsillar hypertrophy. Uvula midline. Airway patent. Neck: No palpable lymphadenopathy. No nuchal rigidity. No thyromegaly. Cardiovascular: Regular rate and rhythm without murmurs, gallops, or rubs. Lungs: Clear to auscultation bilaterally. No wheezes, rhonchi, or rales. Abdomen: Soft, without tenderness to palpation in all 4 quadrants of the abdomen. No guarding, rebound, or rigidity. Normal bowel sounds are audible. No tenderness on palpation of McBurney's point. Negative Camargo sign. Extremities: No clubbing, cyanosis, or edema. 2+ pulses in all 4 extremities. No calf tenderness on palpation. Back: No spinous process tenderness to palpation. No costovertebral angle tenderness to palpation. Neurologic Exam: Grossly nonfocal. Skin Exam: No rash noted. Intact skin that is warm and dry. Data Data Last Documented VS Vital Signs Date Time Temp Pulse Resp B/P (MAP) Pulse Ox O2 Delivery O2 Flow Rate FiO2 12/12/17 04:10 12/12/17 03:56 99 Room Air 12/12/17 02:35 93 18 12/12/17 02:14 98.1 Orders Orders Complete Blood Count With Diff (12/12/17 02:40) Comprehensive Metabolic Panel (12/12/17 02:40) Lipase (12/12/17 02:40) Urinalysis - C+S If Indicated (12/12/17 02:40) Magnesium (Mg) (12/12/17 02:40) Beta Hydroxybutyrate (Acetone) (12/12/17 02:40) Iv Access Insert/Monitor (12/12/17 02:40) Ecg Monitoring (12/12/17 02:40) Oximetry (12/12/17 02:40) Ed Urine Pregnancytest Poc (12/12/17 02:40) Sodium Chlor 0.9% 1000 Ml Inj (Ns 1000 M (12/12/17 02:45) Ondansetron Inj (Zofran Inj) (12/12/17 02:45) Bedside Glucose DORIS.CSUGAR (12/12/17 02:41) Urine Culture (12/12/17 02:47) Ceftriaxone Inj (Rocephin Inj) (12/12/17 03:45) Ed Discharge Order (12/12/17 04:22) Labs Laboratory Tests Test 12/12/17 02:47 White Blood Count 9.4 TH/MM3 Red Blood Count 5.08 MIL/MM3 Hemoglobin 14.8 GM/DL Hematocrit 42.8 % Mean Corpuscular Volume 84.2 FL Mean Corpuscular Hemoglobin 29.2 PG Mean Corpuscular Hemoglobin Concent 34.6 % Red Cell Distribution Width 13.3 % Platelet Count 297 TH/MM3 Mean Platelet Volume 7.7 FL Neutrophils (%) (Auto) 46.5 % Lymphocytes (%) (Auto) 43.2 % Monocytes (%) (Auto) 6.8 % Eosinophils (%) (Auto) 2.3 % Basophils (%) (Auto) 1.2 % Neutrophils # (Auto) 4.4 TH/MM3 Lymphocytes # (Auto) 4.1 TH/MM3 Monocytes # (Auto) 0.6 TH/MM3 Eosinophils # (Auto) 0.2 TH/MM3 Basophils # (Auto) 0.1 TH/MM3 CBC Comment DIFF FINAL Differential Comment Urine Color LIGHT-YELLOW Urine Turbidity CLEAR Urine pH 5.5 Urine Specific [place] 1.030 Urine Protein 30 mg/dL Urine Glucose (UA) 1000 mg/dL Urine Ketones TRACE mg/dL Urine Occult Blood TRACE Urine Nitrite POS Urine Bilirubin NEG Urine Urobilinogen LESS THAN 2.0 MG/DL Urine Leukocyte Esterase SMALL Urine RBC 3 /hpf Urine WBC 18 /hpf Urine Squamous Epithelial Cells 5 /hpf Urine Bacteria FEW /hpf Urine Mucus FEW /lpf Microscopic Urinalysis Comment CULTURE INDICATED Blood Urea Nitrogen 11 MG/DL Creatinine 0.67 MG/DL Random Glucose 250 MG/DL Total Protein 7.7 GM/DL Albumin 3.1 GM/DL Calcium Level 8.1 MG/DL Magnesium Level 1.8 MG/DL Alkaline Phosphatase 58 U/L Aspartate Amino Transf (AST/SGOT) 71 U/L Alanine Aminotransferase (ALT/SGPT) 95 U/L Total Bilirubin 0.4 MG/DL Sodium Level 134 MEQ/L Potassium Level 3.9 MEQ/L Chloride Level 100 MEQ/L Carbon Dioxide Level 26.5 MEQ/L Anion Gap 8 MEQ/L Estimat Glomerular Filtration Rate 104 ML/MIN Lipase 176 U/L B-Hydroxybutyrate 0.10 MMOL/L MDM Medical Decision Making Medical Screen Exam Complete: Yes Emergency Medical Condition: Yes Medical Record Reviewed: Yes Differential Diagnosis DKA, versus hyperglycemia from poorly controlled diabetes mellitus, versus infection causing hyperglycemia Narrative Course During the course of the patient's emergency department visit, the patient's history, examination, and differential diagnosis were reviewed with the patient. The patient was placed on a executive assistant to general counsel with oximetry and frequent blood pressure monitoring. The patient had IV access obtained and blood work sent for analysis. A bedside test was done and negative. The patient was initially provided normal saline 1 L IV fluid bolus, Zofran 4 mg IV. The patient's laboratory studies were reviewed and remarkable for a CBC that is within normal limits, CMP is remarkable for sodium 134, glucose 250, calcium 8.1 , AST 71, ALT 95, albumin 3.1, lipase 176. Beta hydroxybutyrate is within normal limits, urinalysis shows 30 protein 1000 glucose trace ketones trace occult blood, positive nitrite, small leukocyte esterase, 18 WBCs, few bacteria , culture indicated. The patient was given Rocephin 1 g IV. The patient was instructed to increase her metformin to 1000 mg twice a day. The patient will be discharged home with a prescription for Macrobid for urinary tract infection. The patient has a follow-up appointment with her new primary care physician, Dr. Campbell scheduled for December 26. The patient is resting comfortably and feels better, is alert and in no distress. The patient's results and examination findings were discussed with the patient. The repeat examination is unremarkable and benign. The history, exam, diagnostic testing, and current condition do not suggest any significant pathology to warrant further testing, continued ED treatment, admission, or surgical evaluation at this point. The vital signs have been stable. The patient does not have uncontrollable pain, intractable vomiting, or other significant symptoms. The patient's condition is stable and appropriate for discharge. The patient will pursue further outpatient evaluation with a primary care physician or other designated or consulting physician as indicated in the discharge instructions. The patient expressed understanding and was agreeable with this plan. Diagnosis Primary Impression: Hyperglycemia due to type 2 diabetes mellitus Qualified Codes: E11.65 - Type 2 diabetes mellitus with hyperglycemia Additional Impression: UTI (urinary tract infection) Qualified Codes: N30.00 - Acute cystitis without hematuria Referrals: Primary Care Physician 3 days Patient Instructions: Diabetic Hyperglycemia (ED), General Instructions, Urinary Tract Infection in Women (ED) Med/Other Pt SpecificInfo: Prescription(s) given Scripts Metformin (Metformin) 1,000 Mg Tab 1000 MG PO BIDPC for Blood Sugar Management, #60 TAB 0 Refills Prov: Cheyenne Guevara MD 12/12/17 Nitrofurantoin Monohydrate Macrocrystals (Macrobid) 100 Mg Cap 100 MG PO BID for Infection for 10 Days, #20 CAP 0 Refills Prov: Cheyenne Guevara MD 12/12/17 Disposition: 01 DISCHARGE HOME Condition: Stable Cheyenne Guevara MD December 12, 2017 03:07
[2017-12-12 03:22] LABS: ALKALINE PHOSPHATASE 58 U/L (45-117); TOTAL BILIRUBIN ADULT 0.4 MG/DL (0.2-1.0); TOTAL PROTEIN 7.7 GM/DL (6.4-8.2)
[2017-12-12 03:43] LABS: ALBUMIN 3.1 GM/DL (3.4-5.0); ALT (GPT) 95 U/L (10-53); BICARBONATE 26.5 MEQ/L (21.0-32.0); BLOOD UREA NITROGEN 11 MG/DL (7-18); CALCIUM 8.1 MG/DL (8.5-10.1); CHLORIDE 100 MEQ/L (98-107); CREATININE 0.67 MG/DL (0.50-1.00); GLOMERULAR FILTRATION RATE 104 ML/MIN (>89); GLUCOSE,RANDOM 250 MG/DL (74-106); MAGNESIUM 1.8 MG/DL (1.5-2.5); SODIUM (NA) 134 MEQ/L (136-145)
[2017-12-12] MEDS ORDERED: cefTRIAXone INJ 1,000 MG in SODIUM CHLORIDE 0.9% INJ 100 ML IV ONE (03:45)
[2017-12-12] MEDS ORDERED: MACR100C2 PO (03:52)
[2017-12-12] MEDS ORDERED: METF1000 PO (03:52)
[2017-12-12 03:53] LABS: AST (GOT) 71 U/L (15-37)
[2017-12-12 03:56] VITALS: O2SAT 99
== END 2017-12-12 04:28 | disposition home or self-care (01) ==
LOC: NEPE 02:08
DX: E11.65 Type 2 diabetes mellitus with hyperglycemia (principal); N30.00 Acute cystitis without hematuria; E78.00 Pure hypercholesterolemia, unspecified; Z79.84 Long term (current) use of oral hypoglycemic drugs
CPT/HCPCS: 80053; 81001; 82010; 83690; 83735; 84703; 85025; 87077; 87086; 87186; 96361; 96365; 96375; 99284; J0696; J2405; J7030